=== PATIENT | male | born 1955 | race Caucasian/White ===

== ENCOUNTER 2017-07-15 07:45 | Day surgery (SDC) | payer OTHER ==
[~2017-07-15] VITALS: Ht 182.9 cm; Wt 78.6 kg
[~2017-07-15 07:45] MED LIST: ACET325 PO; AMOCLA875 PO; HYDROCODON-ACE1 EAC3 PO; IBUP800 PO
== END 2017-07-15 10:30 | disposition home or self-care (01) ==
LOC: ORSCSDS 07:45
DX: Z12.11 Encounter for screening for malignant neoplasm of colon (principal); Z80.0 Family history of malignant neoplasm of digestive organs; D12.0 Benign neoplasm of cecum; D12.4 Benign neoplasm of descending colon; D12.5 Benign neoplasm of sigmoid colon; Z78.9 Other specified health status
CPT/HCPCS: 86803; 88305; J0330; J1980; J2405; J7120

== ENCOUNTER 2022-06-11 07:51 | Day surgery (SDC) | payer OTHER ==
[~2022-06-11] VITALS: Ht 182.9 cm; Wt 80.1 kg
== END 2022-06-11 10:01 | disposition home or self-care (01) ==
LOC: ORSCSDS 07:51
PROVIDERS: Internal Medicine Gastroenterology
PROC: 0DBL8ZX Excision of Transverse Colon, Via Natural or Artificial Opening Endoscopic, Diagnostic (ICD-10-PCS; principal; 2022-06-11 09:00)
PROC: 0DBH8ZX Excision of Cecum, Via Natural or Artificial Opening Endoscopic, Diagnostic (ICD-10-PCS; principal; 2022-06-11 09:00)
DX: Z12.11 Encounter for screening for malignant neoplasm of colon (principal); D12.0 Benign neoplasm of cecum; D12.3 Benign neoplasm of transverse colon; Z86.010 Personal history of colon polyps; Z80.0 Family history of malignant neoplasm of digestive organs
CPT/HCPCS: 88305; J2704; J7120